=== PATIENT | female | born 1945 | race Caucasian/White ===

== ENCOUNTER → 2016-09-27 | Outpatient (CLI) | payer MEDICARE, OTHER ==
[~2016-09-27] MED LIST: HYDR1CAP2 PO; LOSA1TAB69 PO
--- NOTE | 2016-09-30 11:15 | ECHOCARDIOGRAPHY REPORT ---
PROCEDURE PHYSICIAN: OREN BARCENAS DATE OF PROCEDURE: 09/27/2016 TWO DIMENSIONAL ECHOCARDIOGRAM REPORT PRIMARY PHYSICIAN: Dr. Rogers OTHER PHYSICIAN: REFERRING PHYSICIAN: ORDERING PHYSICIAN: Dr. Barcenas INDICATION FOR THE PROCEDURE: Hypertension, abnormal electrocardiogram MEASUREMENTS DERIVED VALUES LV DIAMETER (LAX) NORMALS NORMALS Diastolic 4.3 (3.6-5.2) Eject. Fract. (60%+/-6%) Systolic (2.3-3.9) Diastolic Vol. % Shortening (0.22-0.42) Systolic Vol. Aortic Root 3.2 IVS THICKNESS Diastolic 1.1 (0.6-1.1) LVPW THICKNESS Diastolic 1.2 (0.6-1.1) LA DIAMETER Systolic 3.3 (2.1-3.7) DESCRIPTION: Two-dimensional echocardiography shows normal global left ventricular systolic function with normal regional motion. Aortic, mitral and tricuspid valve leaflets show good leaflet excursion. Chamber sizes appear to be within normal limits. Aortic valve leaflet structure is not very well visualized. Doppler imaging shows no significant valvular stenosis or regurgitation. There appears to be trivial tricuspid regurgitation. Pulmonary artery systolic pressure is estimated to be approximately 30 mmHg. The inferior vena cava appears to be of normal size and exhibits inspiratory collapse. The study is not adequate for evaluation for intracardiac shunt. CONCLUSION: 1. Normal global left ventricular systolic function with an ejection fraction of approximately 55%. 2. No regional wall motion abnormality is seen on this study. 3. No significant valvular regurgitation or stenosis is seen on this study. 4. Pulmonary artery systolic pressure is estimated to be approximately 30 mmHg. Job ID: [id number] Dictated Date: 09/29/2016 10:20:39 Corporate Operations Compliance Manager Date: 09/30/2016 11:07:45 / viviana
== END ==
LOC: CARD 08:29
PROVIDERS: ATTEND Internal Medicine Cardiovascular Disease
DX: I10 Essential (primary) hypertension (principal); I44.69 Other fascicular block; R94.31 Abnormal electrocardiogram [ECG] [EKG]
CPT/HCPCS: 93306

== ENCOUNTER → 2020-05-27 | Outpatient (CLI) | payer MEDICARE, OTHER ==
[~2020-05-27] VITALS: Ht 162 cm; Wt 67.0 kg
[~2020-05-27] MED LIST changes: +CATHETER FLUSH 10 ML SYR IV PRN; +LOSA1TAB20 PO; -LOSA1TAB69 PO; +REGADENOSON 0.4 MG/5 ML SYR (LEXISCAN) IV ONE
[2020-05-27 11:54] VITALS: BP 169/81
--- NOTE | 2020-05-28 11:31 | STRESS TEST ---
DATE OF SERVICE: 05/27/2020 RESTING AND POST REGADENOSON TECHNETIUM-99M TETROFOSMIN SPECT CT IMAGING ORDERING PHYSICIAN: Dr. Barcenas. PRIMARY PHYSICIAN: Dr. Rogers. CLINICAL DIAGNOSES: Abnormal electrocardiogram, left bundle branch block, hypertension. Baseline images were carried out after injection of 10.79 mCi of technetium-99m Tetrofosmin. This was followed by 0.4 mg regadenoson and 32.7 mCi of technetium-99m Tetrofosmin for stress imaging. The electrocardiogram showed sinus rhythm and left bundle branch block at baseline. It did not change significantly with regadenoson infusion. The patient tolerated the procedure well. Review of images at rest and following stress does not indicate any significant perfusion defects consistent with significant myocardial ischemia or infarction. Gated images show normal global left ventricular systolic function with normal regional wall motion. Left ventricular ejection fraction is calculated to be 76%. TID is absent (1.05). CONCLUSIONS: 1. No evidence of any significant myocardial ischemia or infarction on this study. 2. Normal regional wall motion. 3. Normal global left ventricular systolic function with a calculated ejection fraction of 76%. Job ID: [id number] DocumentID: [id number] Dictated Date: 05/28/2020 08:18:20 Environmental Engineering Aide Date: 05/28/2020 11:31:00 Dictated By: OREN BARCENAS MD, MA, FACP, FACC,
== END ==
LOC: CARD 11:00
PROVIDERS: ATTEND Internal Medicine Cardiovascular Disease
DX: I44.7 Left bundle-branch block, unspecified (principal); I10 Essential (primary) hypertension; R94.31 Abnormal electrocardiogram [ECG] [EKG]
CPT/HCPCS: 78452; 93017; A9502